=== PATIENT | female | born 1940 | race Caucasian/White ===

== ENCOUNTER 2018-10-10 15:42 | Outpatient (CLI) | payer MEDICARE, OTHER ==
[~2018-10-10] VITALS: Ht 167.6 cm; Wt 72.6 kg
[~2018-10-10 15:42] MED LIST: ACET-2267 PO; LEVO75TA6 PO; LOSA50TA63 PO; MULT-35 PO; OMEP20CA12 PO
== END 2018-10-10 15:50 | disposition home or self-care (01) ==
LOC: PREOP 15:42
PROVIDERS: ATTEND Surgery
DX: Z01.818 Encounter for other preprocedural examination (principal)

== ENCOUNTER → 2018-10-16 | Day surgery (SDC) | payer MEDICARE, OTHER ==
[~2018-10-16] VITALS: Ht 167.6 cm; Wt 72.6 kg
[~2018-10-16] MED LIST changes: +ASPI-586 PO; +CALC-823 PO; +CHOL400T PO; +HURRICAINE EXT TUBE (BENZOCAINE) ONE; +HURRICAINE EXT TUBE (BENZOCAINE) XX PRN; +MIDAZOLAM 2 MG/2 ML (VERSED) VIAL IVP ONE; +MIDAZOLAM 2 MG/2 ML (VERSED) VIAL ONE; +NS IV 500 ML 500 ML IV PRN; +fentaNYL INJECTION 100 MCG/2 ML AMP IVP ONE; +fentaNYL INJECTION 100 MCG/2 ML AMP ONE
--- OUTSIDE RECORDS SUMMARY | 2018-10-16 09:22 | XMS REPORT ---
Author Author Apollo Head Organization [employer] Address Unknown Phone Unavailable Care Team Providers Care Chlorinator Name Role Phone Apollo Head CP Unavailable Allergies No Known Allergies Problems Problem Type Condition ICD-9 Code Onset Dates Condition Status Problem Unspecified hypothyroidism 244.9 Active Assessment Essential hypertension, benign 401.1 Active Problem Essential hypertension, benign 401.1 Active Medications Medication Code System Code Instructions Start Date End Date Status Dosage Lisinopril [facility] [address]-35 10 MG Orally Once a day November 27, 2014 1 tablet Results No Known Results Summary Purpose [employer] Submission
--- OUTSIDE RECORDS SUMMARY | 2018-10-16 09:22 | XMS REPORT ---
Author Author Apollo Head Organization Victoriano Jennings MD Address [address] [place] [address] Care Team Providers Care Draw Frame Tender Name Role Phone Sonido Apollo Unavailable PROBLEMS Type Condition ICD9-CM Code [id number] Code Onset Dates Condition Status SNOMED Code Problem Type 2 diabetes mellitus without complications E11.9 Active 750148275 Problem Gastro-esophageal reflux disease without esophagitis K21.9 Active 228092784 Problem Hypothyroidism, unspecified E03.9 Active 21523519 Problem Essential (primary) hypertension I10 Active 70155735 ALLERGIES Substance Reaction Event Type Date Status Lisinopril cough Drug Allergy May, Active ENCOUNTERS Encounter Location Date Diagnosis Victoriano Jennings MD [address] [place] [phone] May, Encounter for general adult medical examination without abnormal findings Z00.00 ; Hypothyroidism, unspecified E03.9 ; Essential (primary) hypertension I10 ; Gastro-esophageal reflux disease without esophagitis K21.9 ; Type 2 diabetes mellitus without complications E11.9 ; Encounter for screening for malignant neoplasm of colon Z12.11 and Impacted cerumen, left ear H61.22 Victoriano Jennings MD [address] [place] [phone] Dec, Victoriano Jennings MD [address] [place] [phone] Dec, Victoriano Jennings MD [address] [place] [phone] Oct, Victoriano Jennings MD [address] [place] [phone] Sep, Hypothyroidism, unspecified E03.9 ; Essential (primary) hypertension I10 ; Gastro-esophageal reflux disease without esophagitis K21.9 and Type 2 diabetes mellitus without complications E11.9 Victoriano Jennings MD [address] [place] [phone] Mar, Essential (primary) hypertension I10 Victoriano Jennings MD [address] [place] [phone] 08 Feb, 2017 Essential (primary) hypertension I10 ; Hypothyroidism, unspecified E03.9 and Type 2 diabetes mellitus without complications E11.9 Victoriano Jennings MD [address] [place] [phone] 06 Nov, 2016 Essential (primary) hypertension I10 ; Gastro-esophageal reflux disease without esophagitis K21.9 and Encounter for screening mammogram for malignant neoplasm of breast Z12.31 Victoriano Jennings MD [address] [place] [phone] Apr, Dermatitis, unspecified L30.9 Victoriano Jennings MD [address] [place] [phone] 17 Feb, 2016 Victoriano Jennings MD [address] [place] [phone] Feb, Victoriano Jennings MD [address] [place] [phone] January, Encounter Imm do not use Z23 and Essential (primary) hypertension I10 Victoriano Jennings MD [address] [place] [phone] Dec, Hypothyroidism, unspecified E03.9 ; Essential (primary) hypertension I10 ; Gastro-esophageal reflux disease without esophagitis K21.9 and Type 2 diabetes mellitus without complications E11.9 Victoriano Jennings MD [address] [place] [phone] Oct, Essential (primary) hypertension I10 and Gastro-esophageal reflux disease without esophagitis K21.9 Victoriano Jennings MD [address] [place] [phone] Aug, Unilateral primary osteoarthritis, right knee M17.11 ; Hyperglycemia, unspecified R73.9 ; Hypothyroidism, unspecified E03.9 and Essential (primary) hypertension I10 Victoriano Jennings MD [address] [place] [phone] Jun, Encounter Imm do not use Z23 and Unspecified open wound of left forearm, initial encounter S51.802A Victoriano Jennings MD [address] [place] [phone] 16 Feb, 2015 Diabetes mellitus without mention of complication, type II or unspecified type, not stated as uncontrolled 250.00 and Essential hypertension, benign 401.1 Victoriano Jennings MD [address] [place] [phone] Dec, Diabetes mellitus without mention of complication, type II or unspecified type, not stated as uncontrolled 250.00 ; 24 completed weeks of gestation 765.22 and Essential hypertension, benign 401.1 Victoriano Jennings MD [address] [place] [phone] Dec, Victoriano Jennings MD [address] [place] [phone] Dec, Essential hypertension, benign 401.1 Victoriano Jennings MD [address] [place] [phone] Dec, Essential hypertension, benign 401.1 Victoriano Jennings MD [address] [place] [phone] Dec, Victoriano Jennings MD [address] [place] [phone] Dec, Esophageal reflux 530.81 Victoriano Jennings MD [address] [place] [phone] Nov, Victoriano Jennings MD [address] [place] [phone] Nov, Essential hypertension, benign 401.1 Victoriano Jennings MD [address] [place] [phone] Nov, Essential hypertension, benign 401.1 ; Unspecified hypothyroidism 244.9 and Diabetes mellitus without mention of complication, type II or unspecified type, not stated as uncontrolled 250.00 Victoriano Jennings MD [address] [place] [phone] Nov, Essential hypertension, benign 401.1 and Unspecified hypothyroidism 244.9 Victoriano Jennings MD [address] [place] [phone] Oct, Essential hypertension, benign 401.1 Victoriano Jennings MD [address] [place] [phone] Oct, Essential hypertension, benign 401.1 Victoriano Jennings MD [address] [place] [phone] Oct, Essential hypertension, benign 401.1 Victoriano Jennings MD [address] [place] [phone] Apr, Victoriano Jennings MD [address] [place] [phone] January, Victoriano Jennings MD [address] [place] [phone] Dec, screening mammogram V76.12 Victoriano Jennings MD [address] [place] [address] Jun, viral gastroenteritis 008.8 and Unspecified hypothyroidism 244.9 IMMUNIZATIONS No Known Immunizations SOCIAL HISTORY Never Assessed REASON FOR VISIT annual visit PLAN OF CARE Activity Details Follow Up 1 Year Reason: Pending Test Occult Blood, Stool, Guaiac Pending Test CBC NO 5 PART DIFFERENTIAL Pending Test LIPID GROUP Pending Test COMPREHENSIVE METABOLIC Pending Test THYROID STIMULATING HORMONE Pending Test HEMOGLOBIN A1C (GLYCOSYLATED) VITAL SIGNS Height 64.50 in 2018-05-30 Weight 165 lbs 2018-05-30 BMI 27.88 kg/m2 2018-05-30 Heart Rate 97 /min 2018-05-30 Oximetry 98 % 2018-05-30 Respiratory Rate 20 /min 2018-05-30 Blood pressure systolic 141 mm Hg 2018-05-30 Blood pressure diastolic 97 mm Hg 2018-05-30 MEDICATIONS Medication Instructions Dosage Frequency Start Date End Date Duration Status Levothyroxine Sodium 75 MCG TAKE 1 TABLET EVERY DAY Active Pseudoephedrine HCl ER 120 MG Orally every 12 hrs 1 tablet as needed 12h 24 Dec, 2017 Not-Taking Losartan Potassium 50 MG TAKE 1 TABLET EVERY DAY Active Omeprazole 20 MG TAKE 1 CAPSULE EVERY DAY Active RESULTS No Results PROCEDURES Procedure Date Ordered Result Body Site fecal occult blood 3 specemins May 30, 2018 PREHTN/HTN BP with F/U May 30, 2018 PAIN ASSESS NEG NO F/U PLAN RQR May 30, 2018 MDCR Wlns do not use May 30, 2018 DOC PATIENT CURRNT NON-TOBACCO USER May 30, 2018 INSTRUCTIONS MEDICATIONS ADMINISTERED No Known Medications MEDICAL (GENERAL) HISTORY Type Description Date Surgical History Lab work Surgical History Knee replacement 12-03-15 Hospitalization History Knee Replacement 12-03-15
--- OUTSIDE RECORDS SUMMARY | 2018-10-16 09:22 | XMS REPORT ---
Author Author Apollo Head Organization [employer] Address Unknown Phone Unavailable Care Team Providers Care Retail Wireless Sales Representative Name Role Phone Apollo Head CP Unavailable Allergies No Known Allergies Problems Problem Type Condition ICD-9 Code Onset Dates Condition Status Problem Unspecified hypothyroidism 244.9 Active Problem Essential hypertension, benign 401.1 Active Medications Medication Code System Code Instructions Start Date End Date Status Dosage Omeprazole [facility] [address]-30 20 MG Orally Once a day December 24, 2014 1 capsule Results No Known Results Summary Purpose [employer] Submission
--- OUTSIDE RECORDS SUMMARY | 2018-10-16 09:22 | XMS REPORT ---
Author Author Victoriano Jennings Organization [employer] Address Unknown Phone Unavailable Care Team Providers Care Coating Machine Operator Helper Name Role Phone Victoriano Jennings CP Unavailable Allergies, Adverse Reactions, Alerts Substance Reaction Event Type N.K.D.A. Info Not Available Non Drug Allergy Problems Problem Type Condition ICD-9 Code Onset Dates Condition Status Problem Unspecified hypothyroidism 244.9 Active Assessment Diabetes mellitus without mention of complication, type II or unspecified type, not stated as uncontrolled 250.00 Active Problem Essential hypertension, benign 401.1 Active Assessment Essential hypertension, benign 401.1 Active Medications Medication Code System Code Instructions Start Date End Date Status Dosage Levothyroxine Sodium [facility] [address]-68 75 MCG TAKE 1 TABLET EVERY DAY Omeprazole [facility] [address]-93 20 MG Orally Once a day December 24, 2014 1 capsule Lisinopril [facility] [address]-66 10 MG Orally Once a day November 27, 2014 1 tablet Procedures Procedure Coding System Code Date Office Visit, Est Pt., Level 1 CPT-4 65111 March 04, 2015 GLUCOSE BLOOD TEST CPT-4 33900 March 04, 2015 Vital Signs Date/Time: March 04, 2015 Blood Pressure Systolic 142 mm Hg Weight 00 lbs Height 64.5 in Blood Pressure Diastolic 84 mm Hg Results No Known Results Summary Purpose [employer] Submission
--- OUTSIDE RECORDS SUMMARY | 2018-10-16 09:22 | XMS REPORT ---
Author Author Victoriano Jennings Organization Victoriano Jennings MD Address [address] [place] [phone] Care Team Providers Care Proof Load Mechanic Name Role Phone Victoriano Jennings Unavailable PROBLEMS Type Condition ICD9-CM Code [id number] Code Onset Dates Condition Status SNOMED Code Problem Gastro-esophageal reflux disease without esophagitis K21.9 Active 734327661 Problem Hypothyroidism, unspecified E03.9 Active 14262326 Assessment Encounter for screening mammogram for malignant neoplasm of breast Z12.31 Nov, Active 233783864 Problem Essential (primary) hypertension I10 Active 70451815 Assessment Essential (primary) hypertension I10 Nov, Active 79787579 ALLERGIES Substance Reaction Event Type Date Status Lisinopril cough Drug Allergy Nov, Active SOCIAL HISTORY No smoking Hx information available PLAN OF CARE Activity Details Pending Test MAMMOGRAM, SCREENING 3 Months,Reason: VITAL SIGNS Height 64.5 in 2016-11-22 Weight 168 lbs 2016-11-22 BMI 28.39 kg/m2 2016-11-22 Heart Rate 97 /min 2016-11-22 Oximetry 100 % 2016-11-22 Respiratory Rate 20 /min 2016-11-22 Blood pressure systolic 148 mm Hg 2016-11-22 Blood pressure diastolic 92 mm Hg 2016-11-22 MEDICATIONS Medication Instructions Dosage Frequency Start Date End Date Duration Status Levothyroxine Sodium 75 MCG TAKE 1 TABLET EVERY DAY 90 Active Losartan Potassium 50 MG Orally Once a day 1 tablet 24h Nov, 90 days Active Omeprazole 20 MG Orally Once a day 1 capsule 24h Dec, 90 days Active RESULTS No Results PROCEDURES Procedure Date Ordered Related Diagnosis Body Site Office Visit, Est Pt., Level 3 November 22, 2016 IMMUNIZATIONS No Known Immunizations
--- OUTSIDE RECORDS SUMMARY | 2018-10-16 09:22 | XMS REPORT ---
Author Author Victoriano Jennings Organization [employer] Address Unknown Phone Unavailable Care Team Providers Care Horticultural Farmer Name Role Phone Victoriano Jennings CP Unavailable Allergies No Known Allergies Problems Problem Type Condition ICD-9 Code Onset Dates Condition Status Problem Unspecified hypothyroidism 244.9 Active Assessment Essential hypertension, benign 401.1 Active Problem Essential hypertension, benign 401.1 Active Medications Medication Code System Code Instructions Start Date End Date Status Dosage Aspir-81 [facility] [address]-38 81 MG Orally Once a day 1 tablet Prilosec OTC [facility] [address] 20 MG Orally Once a day 1 tablet Levothyroxine Sodium [facility] [address]-46 75 MCG TAKE 1 TABLET EVERY DAY Vital Signs Date/Time: Nov 14, 2014 Blood Pressure Diastolic 88 mm Hg Blood Pressure Systolic 158 mm Hg Height 64.5 in Results No Known Results Summary Purpose [employer] Submission
--- OUTSIDE RECORDS SUMMARY | 2018-10-16 09:23 | XMS REPORT ---
Author Author Victoriano Jennings Organization [employer] Address Unknown Phone Unavailable Care Team Providers Care Dress Draper Name Role Phone Victoriano Jennings CP Unavailable Allergies, Adverse Reactions, Alerts Substance Reaction Event Type N.K.D.A. Info Not Available Non Drug Allergy Problems Problem Type Condition Code Onset Dates Condition Status Problem Unspecified hypothyroidism 244.9 Active Assessment Essential hypertension, benign 401.1 Active Problem Essential hypertension, benign 401.1 Active Assessment Unspecified hypothyroidism 244.9 Active Assessment Diabetes mellitus without mention of complication, type II or unspecified type, not stated as uncontrolled 250.00 Active Medications Medication Code System Code Instructions Start Date End Date Status Dosage Lisinopril [facility] [address]-09 10 MG Orally Once a day November 27, 2014 1 tablet Levothyroxine Sodium [facility] [address]-49 75 MCG TAKE 1 TABLET EVERY DAY Prilosec OTC [facility] [address] 20 MG Orally Once a day 1 tablet Procedures Procedure Coding System Code Date TOBACCO NON-USER CPT-4 1036F November 27, 2014 PREHTN/HTN BP DOC INDCD F/U DOC CPT-4 G8950 November 27, 2014 Office Visit, Est Pt., Level 3 CPT-4 47875 November 27, 2014 GLUCOSE BLOOD TEST CPT-4 50460 November 27, 2014 Vital Signs Date/Time: November 27, 2014 BMI 29.74 Index Weight 176 lbs Height 64.5 in Oximetry 98 % Cardiac Monitoring Heart Rate 90 /min Blood Pressure Diastolic 90 mm Hg Blood Pressure Systolic 168 mm Hg Results No Known Results Summary Purpose [employer] Submission
--- OUTSIDE RECORDS SUMMARY | 2018-10-16 09:23 | XMS REPORT ---
Author Author Victoriano Jennings Organization [employer] Address Unknown Phone Unavailable Care Team Providers Care Back Roller Name Role Phone Victoriano Jennings CP Unavailable Allergies No Known Allergies Problems Problem Type Condition Code Onset Dates Condition Status Problem Unspecified hypothyroidism 244.9 Active Assessment Esophageal reflux 530.81 Active Problem Essential hypertension, benign 401.1 Active Medications Medication Code System Code Instructions Start Date End Date Status Dosage Omeprazole [facility] [address]-06 20 MG Orally Once a day December 24, 2014 1 capsule Results No Known Results Summary Purpose [employer] Submission
--- OUTSIDE RECORDS SUMMARY | 2018-10-16 09:23 | XMS REPORT ---
Author Author Victoriano Jennings Organization [employer] Address Unknown Phone Unavailable Care Team Providers Care Security Intern Name Role Phone Victoriano Jennings CP Unavailable Allergies, Adverse Reactions, Alerts Substance Reaction Event Type N.K.D.A. Info Not Available Non Drug Allergy Problems Problem Type Condition Code Onset Dates Condition Status Problem Unspecified hypothyroidism 244.9 Active Assessment Encounter for immunization Z23 Active Problem Essential hypertension, benign 401.1 Active Assessment Unspecified open wound of left forearm, initial encounter S51.802A Active Medications Medication Code System Code Instructions Start Date End Date Status Dosage Omeprazole [facility] [address]-08 20 MG Orally Once a day December 24, 2014 1 capsule Lisinopril [facility] [address]-48 10 MG Orally Once a day November 27, 2014 1 tablet Levothyroxine Sodium [facility] [address]-55 75 MCG TAKE 1 TABLET EVERY DAY Procedures Procedure Coding System Code Date TD VACCINE NO PRSRV >/=7 IM CPT-4 35728 Jul 10, 2015 FLU VACC medicare CPT-4 Q2038 Jul 10, 2015 ADMN FLU VAC NO FEE SCHED SAME DAY CPT-4 G0008 Jul 10, 2015 Results No Known Results Immunizations Vaccine Administration Date Influenza Jul 10, 2015 Td Jul 10, 2015 Summary Purpose [employer] Submission
--- OUTSIDE RECORDS SUMMARY | 2018-10-16 09:23 | XMS REPORT ---
Author Apollo Decker Organization [employer] Address Unknown Phone Unavailable Care Team Providers Care Carpenter Ship Name Role Phone Apollo eHad CP Unavailable Allergies, Adverse Reactions, Alerts Substance Reaction Event Type Lisinopril cough Drug Allergy Problems Problem Type Condition Code Onset Dates Condition Status Problem Hypothyroidism, unspecified E03.9 Active Problem Essential (primary) hypertension I10 Active Problem Gastro-esophageal reflux disease without esophagitis K21.9 Active Assessment Dermatitis, unspecified L30.9 Active Medications Medication Code System Code Instructions Start Date End Date Status Dosage Losartan Potassium [facility] [address]-86 25 MG Orally Once a day Nov 13, 2015 1 tablet Omeprazole [facility] [address]-59 20 MG Orally Once a day December 24, 2014 1 capsule PredniSONE [facility] [address]-45 10 MG Orally Once a day May 03, 2016 May 11, 2016 8 tablets day 1, 7 tablets day 2, 6 tablets day 3, and so on Levothyroxine Sodium [facility] 95090276864 75 MCG TAKE 1 TABLET EVERY DAY Procedures Procedure Coding System Code Date Office Visit, Est Pt., Level 3 CPT-4 62642 May 03, 2016 Vital Signs Date/Time: May 03, 2016 BMI 28.05 Index Weight 166 lbs Height 64.500 in Oximetry 97 % Cardiac Monitoring Heart Rate 86 /min Blood Pressure Diastolic 86 mm Hg Blood Pressure Systolic 158 mm Hg Results No Known Results Summary Purpose [employer] Submission
--- OUTSIDE RECORDS SUMMARY | 2018-10-16 09:23 | XMS REPORT ---
Author Author Victoriano Jennings MD Address [address] [place] [phone] Care Team Providers Care Car Rental Sales Assistant Name Role Phone Victoriano Jennings Unavailable PROBLEMS Type Condition ICD9-CM Code [id number] Code Onset Dates Condition Status SNOMED Code Problem Type 2 diabetes mellitus without complications E11.9 Active 290096075 Problem Gastro-esophageal reflux disease without esophagitis K21.9 Active 253931745 Problem Hypothyroidism, unspecified E03.9 Active 34913115 Problem Essential (primary) hypertension I10 Active 84466964 ALLERGIES No Information ENCOUNTERS Encounter Location Date Diagnosis Victoriano Jennings MD [address] [place] [phone] Oct, Victoriano Jennings MD [address] [place] [phone] Sep, Hypothyroidism, unspecified E03.9 ; Essential (primary) hypertension I10 ; Gastro-esophageal reflux disease without esophagitis K21.9 and Type 2 diabetes mellitus without complications E11.9 Victoriano Jennings MD [address] [place] [phone] Mar, Essential (primary) hypertension I10 Victoriano Jennings MD [address] [place] [phone] Feb, Essential (primary) hypertension I10 ; Hypothyroidism, unspecified E03.9 and Type 2 diabetes mellitus without complications E11.9 Victoriano Jennings MD [address] [place] [phone] Nov, Essential (primary) hypertension I10 ; Gastro-esophageal reflux disease without esophagitis K21.9 and Encounter for screening mammogram for malignant neoplasm of breast Z12.31 Victoriano Jennings MD [address] [place] [phone] Apr, Dermatitis, unspecified L30.9 Victoriano Jennings MD [address] [place] [phone] 17 Feb, 2016 Victoriano Jennings MD [address] [place] [phone] Feb, Victoriano Jennings MD [address] [place] [phone] January, Encounter for immunization Z23 and Essential (primary) hypertension I10 Victoriano Jennings MD [address] [place] [phone] Dec, Hypothyroidism, unspecified E03.9 ; Essential (primary) hypertension I10 ; Gastro-esophageal reflux disease without esophagitis K21.9 and Type 2 diabetes mellitus without complications E11.9 Victoriano Jennings MD [address] [place] [phone] Oct, Essential (primary) hypertension I10 and Gastro-esophageal reflux disease without esophagitis K21.9 Victoriano Jennings MD [address] [place] [phone] Aug, Unilateral primary osteoarthritis, right knee M17.11 ; Hyperglycemia, unspecified R73.9 ; Hypothyroidism, unspecified E03.9 and Essential (primary) hypertension I10 Victoriano Jennings MD [address] [place] [phone] Jun, Encounter for immunization Z23 and Unspecified open wound of left forearm, initial encounter S51.802A Victoriano Jennings MD [address] [place] [phone] Feb, Diabetes mellitus without mention of complication, type II or unspecified type, not stated as uncontrolled 250.00 and Essential hypertension, benign 401.1 Victoriano Jennings MD [address] [place] [phone] Dec, Diabetes mellitus without mention of complication, type II or unspecified type, not stated as uncontrolled 250.00 ; 24 completed weeks of gestation 765.22 and Essential hypertension, benign 401.1 Victoriano Jennings MD [address] [place] [phone] Dec, Victoriano Jennings MD [address] [place] [phone] Dec, Essential hypertension, benign 401.1 Victoriano Jennings MD [address] [place] [phone] Dec, Essential hypertension, benign 401.1 Victoriano Jennings MD [address] [place] [phone] Dec, Victoriano Jennings MD [address] [place] [address] Dec, Esophageal reflux 530.81 Victoriano Jennings MD [address] [place] [phone] Nov, Victoriano Jennings MD [address] [place] [phone] Nov, Essential hypertension, benign 401.1 Victoriano Jennings MD [address] [place] [phone] Nov, Essential hypertension, benign 401.1 ; Unspecified hypothyroidism 244.9 and Diabetes mellitus without mention of complication, type II or unspecified type, not stated as uncontrolled 250.00 Victoriano Jennings MD [address] [place] [phone] Nov, Essential hypertension, benign 401.1 and Unspecified hypothyroidism 244.9 Victoriano Jennings MD [address] [place] [phone] Oct, Essential hypertension, benign 401.1 Victoriano Jennings MD [address] [place] [phone] Oct, Essential hypertension, benign 401.1 Victoriano Jennings MD [address] [place] [phone] Oct, Essential hypertension, benign 401.1 Victoriano Jennings MD [address] [place] [phone] Apr, Victoriano Jennings MD [address] [place] [phone] January, Victoriano Jennings MD [address] [place] [phone] Dec, screening mammogram V76.12 Victoriano Jennings MD [address] [place] [phone] Jun, viral gastroenteritis 008.8 and Unspecified hypothyroidism 244.9 IMMUNIZATIONS No Known Immunizations SOCIAL HISTORY Never Assessed REASON FOR VISIT refil on her losarta potassiun 50mg sent to [facility] VITAL SIGNS MEDICATIONS Medication Instructions Dosage Frequency Start Date End Date Duration Status Losartan Potassium 50 MG Orally Once a day 1 tablet 24h Nov, 90 days Active RESULTS No Results PROCEDURES No Known procedures INSTRUCTIONS MEDICATIONS ADMINISTERED No Known Medications MEDICAL (GENERAL) HISTORY Type Description Date Surgical History Lab work Surgical History Knee replacement 12-03-15 Hospitalization History Knee Replacement 12-03-15
--- OUTSIDE RECORDS SUMMARY | 2018-10-16 09:23 | XMS REPORT ---
Author Author Victoriano Jennings Organization [employer] Address Unknown Phone Unavailable Care Team Providers Care Feed Mill Lab Technician Name Role Phone Victoriano Jennings CP Unavailable Allergies, Adverse Reactions, Alerts Substance Reaction Event Type N.K.D.A. Info Not Available Non Drug Allergy Problems Problem Type Condition ICD-9 Code Onset Dates Condition Status Problem Unspecified hypothyroidism 244.9 Active Assessment Essential hypertension, benign 401.1 Active Problem Essential hypertension, benign 401.1 Active Medications Medication Code System Code Instructions Start Date End Date Status Dosage Prilosec OTC [facility] [address] 20 MG Orally Once a day 1 tablet Levothyroxine Sodium [facility] [address]-09 75 MCG TAKE 1 TABLET EVERY DAY Aspir-81 [facility] [address]-89 81 MG Orally Once a day 1 tablet Procedures Procedure Coding System Code Date NURSING ASSESSMENT/EVALUATION CPT-4 T1001 Nov 13, 2014 Vital Signs Date/Time: Nov 13, 2014 Blood Pressure Diastolic 86 mm Hg Blood Pressure Systolic 158 mm Hg Height 64.5 in Results No Known Results Summary Purpose [employer] Submission
--- OUTSIDE RECORDS SUMMARY | 2018-10-16 09:23 | XMS REPORT ---
Author Author Apollo Head Organization [employer] Address Unknown Phone Unavailable Care Team Providers Care Hemming And Tacking Machine Operator Name Role Phone Apollo Head CP Unavailable Allergies No Known Allergies Problems Problem Type Condition ICD-9 Code Onset Dates Condition Status Problem Unspecified hypothyroidism 244.9 Active Assessment Essential hypertension, benign 401.1 Active Problem Essential hypertension, benign 401.1 Active Medications Medication Code System Code Instructions Start Date End Date Status Dosage Lisinopril [facility] [address]-51 10 MG Orally Once a day November 27, 2014 1 tablet Results No Known Results Summary Purpose [employer] Submission
--- OUTSIDE RECORDS SUMMARY | 2018-10-16 09:23 | XMS REPORT ---
Author Author Apollo Head Organization [employer] Address Unknown Phone Unavailable Care Team Providers Care Drop Forge Hand Name Role Phone Apollo Head CP Unavailable Allergies No Known Allergies Problems Problem Type Condition Code Onset Dates Condition Status Problem Unspecified hypothyroidism 244.9 Active Problem Essential hypertension, benign 401.1 Active Medications No Known Medications Results No Known Results Summary Purpose [employer] Submission
--- OUTSIDE RECORDS SUMMARY | 2018-10-16 09:23 | XMS REPORT ---
Author Author Victoriano Jennings Organization [employer] Address Unknown Phone Unavailable Care Team Providers Care Agricultural Equipment Salesperson Name Role Phone Victoriano Jennings CP Unavailable Allergies, Adverse Reactions, Alerts Substance Reaction Event Type N.K.D.A. Info Not Available Non Drug Allergy Problems Problem Type Condition ICD-9 Code Onset Dates Condition Status Problem Unspecified hypothyroidism 244.9 Active Assessment Essential hypertension, benign 401.1 Active Problem Essential hypertension, benign 401.1 Active Medications Medication Code System Code Instructions Start Date End Date Status Dosage Aspir-81 [facility] [address]-68 81 MG Orally Once a day 1 tablet Levothyroxine Sodium [facility] [address]-88 75 MCG TAKE 1 TABLET EVERY DAY Prilosec OTC [facility] [address] 20 MG Orally Once a day 1 tablet Vital Signs Date/Time: Nov 15, 2014 Blood Pressure Diastolic 100 mm Hg Blood Pressure Systolic 160 mm Hg Height 64.5 in Results No Known Results Summary Purpose [employer] Submission
--- OUTSIDE RECORDS SUMMARY | 2018-10-16 09:23 | XMS REPORT ---
Author Author Victoriano Jennings Organization [employer] Address Unknown Phone Unavailable Care Team Providers Care Reworker Name Role Phone Victoriano Jennings CP Unavailable Allergies, Adverse Reactions, Alerts Substance Reaction Event Type N.K.D.A. Info Not Available Non Drug Allergy Problems Problem Type Condition ICD-9 Code Onset Dates Condition Status Problem Unspecified hypothyroidism 244.9 Active Assessment Essential hypertension, benign 401.1 Active Problem Essential hypertension, benign 401.1 Active Assessment Unspecified hypothyroidism 244.9 Active Medications Medication Code System Code Instructions Start Date End Date Status Dosage Prilosec OTC [facility] [address] 20 MG Orally Once a day 1 tablet Levothyroxine Sodium [facility] [address]-43 75 MCG TAKE 1 TABLET EVERY DAY Procedures Procedure Coding System Code Date TOBACCO NON-USER CPT-4 1036F November 18, 2014 PREHTN/HTN BP DOC INDCD F/U DOC CPT-4 G8950 November 18, 2014 Office Visit, Est Pt., Level 3 CPT-4 06322 November 18, 2014 Vital Signs Date/Time: November 18, 2014 BMI 30.42 Index Weight 180 lbs Height 64.5 in Oximetry 95 % Cardiac Monitoring Heart Rate 110 /min Blood Pressure Diastolic 92 mm Hg Blood Pressure Systolic 152 mm Hg Results No Known Results Summary Purpose [employer] Submission
--- OUTSIDE RECORDS SUMMARY | 2018-10-16 09:24 | XMS REPORT ---
Author Author Apollo Head Organization [employer] Address Unknown Phone Unavailable Care Team Providers Care Home Health Aide Caregiver Name Role Phone Apollo Head CP Unavailable Allergies No Known Allergies Problems Problem Type Condition ICD-9 Code Onset Dates Condition Status Problem Unspecified hypothyroidism 244.9 Active Problem Essential hypertension, benign 401.1 Active Medications Medication Code System Code Instructions Start Date End Date Status Dosage Prilosec OTC [facility] [address] 20 MG Orally Once a day 1 tablet Results No Known Results Summary Purpose [employer] Submission
--- OUTSIDE RECORDS SUMMARY | 2018-10-16 09:24 | XMS REPORT ---
Author Author Apollo Head Organization [employer] Address Unknown Phone Unavailable Care Team Providers Care Critical Power Technician Name Role Phone Apollo Head CP Unavailable Allergies No Known Allergies Problems Problem Type Condition ICD-9 Code Onset Dates Condition Status Problem Unspecified hypothyroidism 244.9 Active Assessment Essential hypertension, benign 401.1 Active Problem Essential hypertension, benign 401.1 Active Medications Medication Code System Code Instructions Start Date End Date Status Dosage Levothyroxine Sodium [facility] [address]-79 75 MCG TAKE 1 TABLET EVERY DAY Lisinopril [facility] [address]-39 10 MG Orally Once a day November 27, 2014 1 tablet Results No Known Results Summary Purpose [employer] Submission
--- OUTSIDE RECORDS SUMMARY | 2018-10-16 09:24 | XMS REPORT ---
Author Author Victoriano Jennings Organization [employer] Address Unknown Phone Unavailable Care Team Providers Care New Business Clerk Name Role Phone Victoriano Jennings CP Unavailable Allergies No Known Allergies Problems Problem Type Condition Code Onset Dates Condition Status Problem Unspecified hypothyroidism 244.9 Active Assessment Diabetes mellitus without mention of complication, type II or unspecified type, not stated as uncontrolled 250.00 Active Problem Essential hypertension, benign 401.1 Active Assessment 24 completed weeks of gestation 765.22 Active Assessment Essential hypertension, benign 401.1 Active Medications Medication Code System Code Instructions Start Date End Date Status Dosage Lisinopril [facility] [address]-17 10 MG Orally Once a day November 27, 2014 1 tablet Omeprazole [facility] [address]-87 20 MG Orally Once a day December 24, 2014 1 capsule Levothyroxine Sodium [facility] [address]-66 75 MCG TAKE 1 TABLET EVERY DAY Procedures Procedure Coding System Code Date Office Visit, Est Pt., Level 1 CPT-4 51414 January 08, 2015 GLUCOSE BLOOD TEST CPT-4 08400 January 08, 2015 Vital Signs Date/Time: January 08, 2015 Blood Pressure Systolic 156 mm Hg Weight 0000 lbs Height 64.5 in Blood Pressure Diastolic 86 mm Hg Results No Known Results Summary Purpose [employer] Submission
--- OUTSIDE RECORDS SUMMARY | 2018-10-16 09:24 | XMS REPORT ---
Author Author Apollo Head Organization Victoriano Jennings MD Address [address] [place] [address] Care Team Providers Care Registered Nurse Midwife Name Role Phone SonidoSawi Unavailable PROBLEMS Type Condition ICD9-CM Code [id number] Code Onset Dates Condition Status SNOMED Code Problem Type 2 diabetes mellitus without complications E11.9 Active 726764276 Problem Gastro-esophageal reflux disease without esophagitis K21.9 Active 350845316 Problem Hypothyroidism, unspecified E03.9 Active 18217229 Problem Essential (primary) hypertension I10 Active 50162019 ALLERGIES Substance Reaction Event Type Date Status Lisinopril cough Drug Allergy Sep, Active ENCOUNTERS Encounter Location Date Diagnosis Victoriano Jennings MD [address] [place] [phone] Oct, Victoriano Jennings MD [address] [place] [phone] Sep, Hypothyroidism, unspecified E03.9 ; Essential (primary) hypertension I10 ; Gastro-esophageal reflux disease without esophagitis K21.9 and Type 2 diabetes mellitus without complications E11.9 Victoriano Jennings MD [address] [place] [phone] Mar, Essential (primary) hypertension I10 Victoriano Jennings MD [address] [place] [address] Feb, Essential (primary) hypertension I10 ; Hypothyroidism, unspecified E03.9 and Type 2 diabetes mellitus without complications E11.9 Victoriano Jennings MD [address] [place] [phone] Nov, Essential (primary) hypertension I10 ; Gastro-esophageal reflux disease without esophagitis K21.9 and Encounter for screening mammogram for malignant neoplasm of breast Z12.31 Victoriano Jennings MD [address] [place] [phone] Apr, Dermatitis, unspecified L30.9 Victoriano Jennings MD [address] [place] [address] Feb, Victoriano Jennings MD [address] [place] [address] Feb, Victoriano Jennings MD [address] [place] [phone] January, Encounter for immunization Z23 and Essential (primary) hypertension I10 Victoriano Jennings MD [address] [place] [address] Dec, Hypothyroidism, unspecified E03.9 ; Essential (primary) hypertension I10 ; Gastro-esophageal reflux disease without esophagitis K21.9 and Type 2 diabetes mellitus without complications E11.9 Victoriano Jennings MD [address] [place] [address] Oct, Essential (primary) hypertension I10 and Gastro-esophageal reflux disease without esophagitis K21.9 Victoriano Jennings MD [address] [place] [address] Aug, Unilateral primary osteoarthritis, right knee M17.11 ; Hyperglycemia, unspecified R73.9 ; Hypothyroidism, unspecified E03.9 and Essential (primary) hypertension I10 Victoriano Jennings MD [address] [place] [phone] Jun, Encounter for immunization Z23 and Unspecified open wound of left forearm, initial encounter S51.802A Victoriano Jennings MD [address] [place] [address] Feb, Diabetes mellitus without mention of complication, type II or unspecified type, not stated as uncontrolled 250.00 and Essential hypertension, benign 401.1 Victoriano Jennings MD [address] [place] [address] Dec, Diabetes mellitus without mention of complication, type II or unspecified type, not stated as uncontrolled 250.00 ; 24 completed weeks of gestation 765.22 and Essential hypertension, benign 401.1 Victoriano Jennings MD [address] [place] [address] Dec, Victoriano Jennings MD [address] [place] [address] Dec, Essential hypertension, benign 401.1 Victoriano Jennings MD [address] [place] [phone] Dec, Essential hypertension, benign 401.1 Victoriano Jennings MD [address] [place] [address] Dec, Victoriano Jennings MD [address] [place] [address] Dec, Esophageal reflux 530.81 Victoriano Jennings MD [address] [place] [address] Nov, Victoriano Jennings MD [address] [place] [address] Nov, Essential hypertension, benign 401.1 Victoriano Jennings MD [address] [place] [address] Nov, Essential hypertension, benign 401.1 ; Unspecified hypothyroidism 244.9 and Diabetes mellitus without mention of complication, type II or unspecified type, not stated as uncontrolled 250.00 Victoriano Jennings MD [address] [place] [address] Nov, Essential hypertension, benign 401.1 and Unspecified hypothyroidism 244.9 Victoriano Jennings MD [address] [place] [address] Oct, Essential hypertension, benign 401.1 Victoriano Jennings MD [address] [place] [address] Oct, Essential hypertension, benign 401.1 Victoriano Jennings MD [address] [place] [address] Oct, Essential hypertension, benign 401.1 Victoriano Jennings MD [address] [place] [address] Apr, Victoriano Jennings MD [address] [place] [phone] January, Victoriano Jennings MD [address] [place] [address] Dec, screening mammogram V76.12 Victoriano Jennings MD [address] [place] [address] Jun, viral gastroenteritis 008.8 and Unspecified hypothyroidism 244.9 IMMUNIZATIONS No Known Immunizations SOCIAL HISTORY Never Assessed REASON FOR VISIT check up , form filled out for her exercise class, she is fasting and would like blood sugar PLAN OF CARE Activity Details Follow Up prn, 2 Weeks Reason:BP VITAL SIGNS Height 64.5 in 2017-10-07 Weight 170 lbs 2017-10-07 BMI 28.73 kg/m2 2017-10-07 Heart Rate 82 /min 2017-10-07 Oximetry 97 % 2017-10-07 Respiratory Rate 20 /min 2017-10-07 Blood pressure systolic 150 mm Hg 2017-10-07 Blood pressure diastolic 92 mm Hg 2017-10-07 MEDICATIONS Medication Instructions Dosage Frequency Start Date End Date Duration Status Losartan Potassium 50 MG Orally Once a day 1 tablet 24h Nov, 90 days Active Levothyroxine Sodium 75 MCG TAKE 1 TABLET EVERY DAY 90 Active Omeprazole 20 MG TAKE 1 CAPSULE EVERY DAY 90 Active RESULTS No Results PROCEDURES Procedure Date Ordered Result Body Site DOC PATIENT CURRNT NON-TOBACCO USER Oct 07, 2017 PAIN ASSESS NEG NO F/U PLAN RQR Oct 07, 2017 PREHTN/HTN BP with F/U Oct 07, 2017 INSTRUCTIONS MEDICATIONS ADMINISTERED No Known Medications MEDICAL (GENERAL) HISTORY Type Description Date Surgical History Lab work Surgical History Knee replacement 12-03-15 Hospitalization History Knee Replacement 12-03-15
--- OUTSIDE RECORDS SUMMARY | 2018-10-16 09:24 | XMS REPORT ---
Author Author Victoriano Jennings MD Address [address] [place] [phone] Care Team Providers Care Hydraulic Press Tender Name Role Phone Victoriano Jennings Unavailable PROBLEMS Type Condition ICD9-CM Code [id number] Code Onset Dates Condition Status SNOMED Code Problem Type 2 diabetes mellitus without complications E11.9 Active 641769499 Problem Gastro-esophageal reflux disease without esophagitis K21.9 Active 991855881 Problem Hypothyroidism, unspecified E03.9 Active 55765778 Problem Essential (primary) hypertension I10 Active 51195413 ALLERGIES Substance Reaction Event Type Date Status Lisinopril cough Drug Allergy Feb, Active ENCOUNTERS Encounter Location Date Diagnosis Victoriano Jennings MD [address] [place] [phone] Oct, Victoriano Jennings MD [address] [place] [phone] Sep, Hypothyroidism, unspecified E03.9 ; Essential (primary) hypertension I10 ; Gastro-esophageal reflux disease without esophagitis K21.9 and Type 2 diabetes mellitus without complications E11.9 Victoriano Jennings MD [address] [place] [phone] Mar, Essential (primary) hypertension I10 Victoriano Jennings MD [address] [place] [phone] Feb, Essential (primary) hypertension I10 ; Hypothyroidism, unspecified E03.9 and Type 2 diabetes mellitus without complications E11.9 Victoriano Jennings MD [address] [place] [phone] Nov, Essential (primary) hypertension I10 ; Gastro-esophageal reflux disease without esophagitis K21.9 and Encounter for screening mammogram for malignant neoplasm of breast Z12.31 Victoriano Jennings MD [address] [place] [phone] Apr, Dermatitis, unspecified L30.9 Victoriano Jennings MD [address] [place] [phone] Feb, Victoriano Jennings MD [address] [place] [phone] Feb, Victoriano Jennings MD [address] [place] [phone] January, Encounter for immunization Z23 and Essential (primary) hypertension I10 Victoriano Jennings MD [address] [place] [phone] Dec, Hypothyroidism, unspecified E03.9 ; Essential (primary) hypertension I10 ; Gastro-esophageal reflux disease without esophagitis K21.9 and Type 2 diabetes mellitus without complications E11.9 Victoriano Jennings MD [address] [place] [address] Oct, Essential (primary) hypertension I10 and Gastro-esophageal reflux disease without esophagitis K21.9 Victoriano Jennings MD [address] [place] [phone] Aug, Unilateral primary osteoarthritis, right knee M17.11 ; Hyperglycemia, unspecified R73.9 ; Hypothyroidism, unspecified E03.9 and Essential (primary) hypertension I10 Victoriano Jennings MD [address] [place] [phone] Jun, Encounter for immunization Z23 and Unspecified open wound of left forearm, initial encounter S51.802A Victoriano Jennings MD [address] [place] [phone] Feb, Diabetes mellitus without mention of complication, type II or unspecified type, not stated as uncontrolled 250.00 and Essential hypertension, benign 401.1 Victoriano Jennings MD [address] [place] [phone] Dec, Diabetes mellitus without mention of complication, type II or unspecified type, not stated as uncontrolled 250.00 ; 24 completed weeks of gestation 765.22 and Essential hypertension, benign 401.1 Victoriano Jennings MD [address] [place] [phone] Dec, Victoriano Jennings MD [address] [place] [address] Dec, Essential hypertension, benign 401.1 Victoriano Jennings MD [address] [place] [address] Dec, Essential hypertension, benign 401.1 Victoriano Jennings MD [address] [place] [phone] Dec, Victoriano Jennings MD [address] [place] [address] Dec, Esophageal reflux 530.81 Victoriano Jennings MD [address] [place] [phone] Nov, Victoriano Jennings MD [address] [place] [phone] Nov, Essential hypertension, benign 401.1 Victoriano Jennings MD [address] [place] [phone] Nov, Essential hypertension, benign 401.1 ; Unspecified hypothyroidism 244.9 and Diabetes mellitus without mention of complication, type II or unspecified type, not stated as uncontrolled 250.00 Victoriano Jennings MD [address] [place] [address] Nov, Essential hypertension, benign 401.1 and Unspecified hypothyroidism 244.9 Victoriano Jennings MD [address] [place] [phone] Oct, Essential hypertension, benign 401.1 Victoriano Jennings MD [address] [place] [phone] Oct, Essential hypertension, benign 401.1 Victoriano Jennings MD [address] [place] [phone] Oct, Essential hypertension, benign 401.1 Victoriano Jennings MD [address] [place] [phone] Apr, Victoriano Jennings MD [address] [place] [phone] January, Victoriano Jennings MD [address] [place] [phone] Dec, screening mammogram V76.12 Victoriano Jennings MD [address] [place] [phone] Jun, viral gastroenteritis 008.8 and Unspecified hypothyroidism 244.9 IMMUNIZATIONS No Known Immunizations SOCIAL HISTORY Never Assessed REASON FOR VISIT BP ck and Lab for BS PLAN OF CARE Activity Details Follow Up prn Reason: VITAL SIGNS MEDICATIONS Medication Instructions Dosage Frequency Start Date End Date Duration Status Levothyroxine Sodium 75 MCG TAKE 1 TABLET EVERY DAY 90 Active Omeprazole 20 MG Orally Once a day 1 capsule 24h Dec, 90 days Active Losartan Potassium 50 MG Orally Once a day 1 tablet 24h Nov, 90 days Active RESULTS Name Result Date Reference Range COMPLETE BLOOD COUNT 2017-02-24 WBC 6.0 4.3-11.0 RBC 4.40 3.93-5.19 Hemoglobin 13.2 11.6-15.9 Hematocrit 40.9 35.7-47.8 MCV 93.0 83.2-100.5 MCH 30.0 26.8-33.3 MCHC 32.3 30.9-34.7 Platelet Count 256 170-422 Mean Plt Volume 10.0 9.5-12.9 RDW 13.2 12.2-15.3 RDW-SD 44.2 40.1-52.1 Neut Auto 61.5 Lymph Auto 26.9 Colbert Auto 7.1 Eos Auto 4.3 Baso Auto 0.2 Neutrophil Abs 3.69 1.80-7.80 Lymphocyte Abs 1.61 1.00-4.00 Monocyte Abs 0.43 0.20-1.00 Eosinophil Abs 0.26 0.00-0.45 Basophil Abs 0.01 0.00-0.20 LIPID GROUP 2017-02-24 Cholesterol 177 100-200 Triglyceride 135 30-150 HDL Cholesterol 62 40-125 Chol/HDL Ratio 2.85 0.00-4.44 LDL Cholesterol 88 0-130 COMPREHENSIVE METABOLIC 2017-02-24 Glucose 87 70-100 Creatinine 0.75 0.50-1.30 BUN 17 5-24 Sodium 140 135-145 Potassium 4.3 3.5-5.5 Chloride 101 96-108 Bicarbonate 25 18-30 AGAP 14 5-16 Calcium 10.5 8.5-10.5 AST 22 0-40 ALT 18 0-30 Alk Phos 67 40-123 Albumin 4.5 3.8-4.8 Bili Total 0.4 0.1-1.3 Total Protein 7.6 6.4-8.2 THYROID STIMULATING HORMONE 2017-02-24 TSH 1.613 0.300-5.000 HEMOGLOBIN A1C (GLYCOSYLATED) 2017-02-24 Hgb A1c 5.5 4.0-5.6 PROCEDURES No Known procedures INSTRUCTIONS MEDICATIONS ADMINISTERED No Known Medications MEDICAL (GENERAL) HISTORY Type Description Date Surgical History Lab work Surgical History Knee replacement 12-03-15 Hospitalization History Knee Replacement 12-03-15
--- OUTSIDE RECORDS SUMMARY | 2018-10-16 09:24 | XMS REPORT ---
Author Author Victoriano Jennings Organization [employer] Address Unknown Phone Unavailable Care Team Providers Care Kitchen Work Supervisor Name Role Phone Victoriano Jennings CP Unavailable Allergies, Adverse Reactions, Alerts Substance Reaction Event Type N.K.D.A. Info Not Available Non Drug Allergy Problems Problem Type Condition Code Onset Dates Condition Status Assessment Essential (primary) hypertension I10 Active Problem Essential (primary) hypertension I10 Active Problem Essential hypertension, benign 401.1 Active Problem Hypothyroidism, unspecified E03.9 Active Assessment Hyperglycemia, unspecified R73.9 Active Assessment Hypothyroidism, unspecified E03.9 Active Problem Unspecified hypothyroidism 244.9 Active Assessment Unilateral primary osteoarthritis, right knee M17.11 Active Medications Medication Code System Code Instructions Start Date End Date Status Dosage Levothyroxine Sodium [facility] [address]-03 75 MCG TAKE 1 TABLET EVERY DAY Omeprazole [facility] [address]-54 20 MG Orally Once a day December 24, 2014 1 capsule Lisinopril [facility] [address]-74 10 MG Orally Once a day November 27, 2014 1 tablet Procedures Procedure Coding System Code Date SCREEN MAMMO DOC REV CPT-4 3014F Sep 03, 2015 Office Visit, Est Pt., Level 3 CPT-4 44729 Sep 03, 2015 Vital Signs Date/Time: Sep 03, 2015 BMI 28.39 Index Weight 168 lbs Height 64.5 in Oximetry 98 % Cardiac Monitoring Heart Rate 98 /min Blood Pressure Diastolic 80 mm Hg Blood Pressure Systolic 140 mm Hg Respiratory Rate 18 /min Results No Known Results Summary Purpose [employer] Submission
--- OUTSIDE RECORDS SUMMARY | 2018-10-16 09:24 | XMS REPORT ---
Author Author Victoriano Jennings MD Address [address] [place] [phone] Care Team Providers Care Manpower Development Manager Name Role Phone Victoriano Jennings Unavailable PROBLEMS Type Condition ICD9-CM Code [id number] Code Onset Dates Condition Status SNOMED Code Problem Type 2 diabetes mellitus without complications E11.9 Active 387572560 Problem Gastro-esophageal reflux disease without esophagitis K21.9 Active 663603399 Problem Hypothyroidism, unspecified E03.9 Active 86792889 Problem Essential (primary) hypertension I10 Active 18565177 ALLERGIES No Information ENCOUNTERS Encounter Location Date Diagnosis Victoriano Jennings MD [address] [place] [phone] Dec, Victoriano Jennings MD [address] [place] [phone] Oct, Victoriano Jennings MD [address] [place] [phone] Sep, Hypothyroidism, unspecified E03.9 ; Essential (primary) hypertension I10 ; Gastro-esophageal reflux disease without esophagitis K21.9 and Type 2 diabetes mellitus without complications E11.9 Victoriano Jennings MD [address] [place] [phone] Mar, Essential (primary) hypertension I10 Victoriano Jennings MD [address] [place] [phone] Feb, Essential (primary) hypertension I10 ; Hypothyroidism, unspecified E03.9 and Type 2 diabetes mellitus without complications E11.9 Victoriano Jennings MD [address] [place] [phone] Nov, Essential (primary) hypertension I10 ; Gastro-esophageal reflux disease without esophagitis K21.9 and Encounter for screening mammogram for malignant neoplasm of breast Z12.31 Victoriano Jennings MD [address] [place] [phone] 15 Apr, 2016 Dermatitis, unspecified L30.9 Victoriano Jennings MD [address] [place] [phone] Feb, Victoriano Jennings MD [address] [place] [phone] Feb, Victoriano Jennings MD [address] [place] [phone] January, Encounter for immunization Z23 and Essential (primary) hypertension I10 Victoriano Jennings MD [address] [place] [address] Dec, Hypothyroidism, unspecified E03.9 ; Essential (primary) hypertension I10 ; Gastro-esophageal reflux disease without esophagitis K21.9 and Type 2 diabetes mellitus without complications E11.9 Victoriano Jennings MD [address] [place] [address] Oct, Essential (primary) hypertension I10 and Gastro-esophageal reflux disease without esophagitis K21.9 Victoriano Jennings MD [address] [place] [address] Aug, Unilateral primary osteoarthritis, right knee M17.11 ; Hyperglycemia, unspecified R73.9 ; Hypothyroidism, unspecified E03.9 and Essential (primary) hypertension I10 Victoriano Jennings MD [address] [place] [phone] Jun, Encounter for immunization Z23 and Unspecified open wound of left forearm, initial encounter S51.802A Victoriano Jennings MD [address] [place] [address] Feb, Diabetes mellitus without mention of complication, type II or unspecified type, not stated as uncontrolled 250.00 and Essential hypertension, benign 401.1 Victoriano Jennings MD [address] [place] [address] Dec, Diabetes mellitus without mention of complication, type II or unspecified type, not stated as uncontrolled 250.00 ; 24 completed weeks of gestation 765.22 and Essential hypertension, benign 401.1 Victoriano Jennings MD [address] [place] [address] Dec, Victoriano Jennings MD [address] [place] [address] Dec, Essential hypertension, benign 401.1 Victoriano Jennings MD [address] [place] [address] Dec, Essential hypertension, benign 401.1 Victoriano Jennings MD [address] [place] [address] Dec, Victoriano Jennings MD [address] [place] [address] Dec, Esophageal reflux 530.81 Victoriano Jennings MD [address] [place] [address] Nov, Victoriano Jennings MD [address] [place] [address] Nov, Essential hypertension, benign 401.1 Victoriano Jennings MD [address] [place] [address] Nov, Essential hypertension, benign 401.1 ; Unspecified hypothyroidism 244.9 and Diabetes mellitus without mention of complication, type II or unspecified type, not stated as uncontrolled 250.00 Victoriano Jennings MD [address] [place] [address] Nov, Essential hypertension, benign 401.1 and Unspecified hypothyroidism 244.9 Victoriano Jennings MD [address] [place] [address] Oct, Essential hypertension, benign 401.1 Victoirano Jennings MD [address] [place] [address] Oct, Essential hypertension, benign 401.1 Victoriano Jennings MD [address] [place] [address] Oct, Essential hypertension, benign 401.1 Victoriano Jennings MD [address] [place] [address] Apr, Victoriano Jennings MD [address] [place] [address] January, Victoriano Jennings MD [address] [place] [address] Dec, screening mammogram V76.12 Victoriano Jennings MD [address] [place] [phone] Jun, viral gastroenteritis 008.8 and Unspecified hypothyroidism 244.9 IMMUNIZATIONS No Known Immunizations SOCIAL HISTORY Never Assessed REASON FOR VISIT Sudefed PLAN OF CARE VITAL SIGNS MEDICATIONS Medication Instructions Dosage Frequency Start Date End Date Duration Status Pseudoephedrine HCl ER 120 MG Orally every 12 hrs 1 tablet as needed 12h 24 Dec, 2017 Active RESULTS No Results PROCEDURES No Known procedures INSTRUCTIONS MEDICATIONS ADMINISTERED No Known Medications MEDICAL (GENERAL) HISTORY Type Description Date Surgical History Lab work Surgical History Knee replacement 12-03-15 Hospitalization History Knee Replacement 12-03-15
--- OUTSIDE RECORDS SUMMARY | 2018-10-16 09:25 | XMS REPORT ---
Author Author Victoriano Jennings MD Address [address] [place] [phone] Care Team Providers Care Office Administration Name Role Phone Victoriano Jennings Unavailable PROBLEMS Type Condition ICD9-CM Code [id number] Code Onset Dates Condition Status SNOMED Code Problem Type 2 diabetes mellitus without complications E11.9 Active 583906486 Problem Gastro-esophageal reflux disease without esophagitis K21.9 Active 008800541 Problem Hypothyroidism, unspecified E03.9 Active 73672681 Problem Essential (primary) hypertension I10 Active 36241948 ALLERGIES No Information ENCOUNTERS Encounter Location Date Diagnosis Victoriano Jennings MD [address] [place] [phone] Oct, Victoriano Jennings MD [address] [place] [phone] Sep, Hypothyroidism, unspecified E03.9 ; Essential (primary) hypertension I10 ; Gastro-esophageal reflux disease without esophagitis K21.9 and Type 2 diabetes mellitus without complications E11.9 Victoriano Jennings MD [address] [place] [phone] Mar, Essential (primary) hypertension I10 Victoriano Jennings MD [address] [place] [address] Feb, Essential (primary) hypertension I10 ; Hypothyroidism, unspecified E03.9 and Type 2 diabetes mellitus without complications E11.9 Victoriano Jennings MD [address] [place] [phone] Nov, Essential (primary) hypertension I10 ; Gastro-esophageal reflux disease without esophagitis K21.9 and Encounter for screening mammogram for malignant neoplasm of breast Z12.31 Victoriano Jennings MD [address] [place] [address] Apr, Dermatitis, unspecified L30.9 Victoriano Jennings MD [address] [place] [address] 17 Feb, 2016 Victoriano Jennings MD [address] [place] [address] Feb, Victoriano Jennings MD [address] [place] [address] January, Encounter for immunization Z23 and Essential (primary) hypertension I10 Victoriano Jennings MD [address] [place] [address] Dec, Hypothyroidism, unspecified E03.9 ; Essential (primary) hypertension I10 ; Gastro-esophageal reflux disease without esophagitis K21.9 and Type 2 diabetes mellitus without complications E11.9 Victoriano Jennings MD [address] [place] [address] Oct, Essential (primary) hypertension I10 and Gastro-esophageal reflux disease without esophagitis K21.9 Victoriano Jennings MD [address] [place] [address] Aug, Unilateral primary osteoarthritis, right knee M17.11 ; Hyperglycemia, unspecified R73.9 ; Hypothyroidism, unspecified E03.9 and Essential (primary) hypertension I10 Victoriano Jennings MD [address] [place] [address] Jun, Encounter for immunization Z23 and Unspecified open wound of left forearm, initial encounter S51.802A Victoriano Jennings MD [address] [place] [address] Feb, Diabetes mellitus without mention of complication, type II or unspecified type, not stated as uncontrolled 250.00 and Essential hypertension, benign 401.1 Victoriano Jennings MD [address] [place] [address] Dec, Diabetes mellitus without mention of complication, type II or unspecified type, not stated as uncontrolled 250.00 ; 24 completed weeks of gestation 765.22 and Essential hypertension, benign 401.1 Victoriano Jennings MD [address] [place] [phone] Dec, Victoriano Jennings MD [address] [place] [address] Dec, Essential hypertension, benign 401.1 Victoriano Jennings MD [address] [place] [address] Dec, Essential hypertension, benign 401.1 Victoriano Jennings MD [address] [place] [phone] Dec, Victoriano Jennings MD [address] [place] [address] Dec, Esophageal reflux 530.81 Victoriano Jennings MD [address] [place] [phone] Nov, Victoriano Jennings MD [address] [place] [address] Nov, Essential hypertension, benign 401.1 Victoriano Jennings MD [address] [place] [address] Nov, Essential hypertension, benign 401.1 ; Unspecified hypothyroidism 244.9 and Diabetes mellitus without mention of complication, type II or unspecified type, not stated as uncontrolled 250.00 Victoriano Jennings MD [address] [place] [phone] Nov, Essential hypertension, benign 401.1 and Unspecified hypothyroidism 244.9 Victoriano Jennings MD [address] [place] [phone] Oct, Essential hypertension, benign 401.1 Victoriano Jennings MD [address] [place] [phone] Oct, Essential hypertension, benign 401.1 Victoriano Jennings MD [address] [place] [address] Oct, Essential hypertension, benign 401.1 Victoriano Jennings MD [address] [place] [address] Apr, Victoriano Jennings MD [address] [place] [phone] January, Victoriano Jennings MD [address] [place] [phone] Dec, screening mammogram V76.12 Victoriano Jennings MD [address] [place] [address] Jun, viral gastroenteritis 008.8 and Unspecified hypothyroidism 244.9 IMMUNIZATIONS No Known Immunizations SOCIAL HISTORY Never Assessed REASON FOR VISIT bp readings PLAN OF CARE VITAL SIGNS MEDICATIONS Unknown Medications RESULTS No Results PROCEDURES No Known procedures INSTRUCTIONS MEDICATIONS ADMINISTERED No Known Medications MEDICAL (GENERAL) HISTORY Type Description Date Surgical History Lab work Surgical History Knee replacement 12-03-15 Hospitalization History Knee Replacement 12-03-15
--- NOTE | 2018-10-16 09:28 | History & Physicial ---
History of Present Illness History of Present Illness Reason for visit/HPI to undergo an upper endoscopy with possible balloon dilatation, to manage dysphagia. Date of Admission 10/16/18 Date Seen by a Provider: Oct 16, 2018 Time Seen by a Provider: 09:27 I consulted on this patient on 10/16/18 09:26 Attending Physician Christos Mcarthur MD Admitting Physician Gomez Bob MD Consult Allergies and Home Medications Allergies Coded Allergies: No Known Drug Allergies (Unverified , 10/10/18) Home Medications Acetaminophen 500 Mg Tablet, 500 MG PO PRN, (Reported) Levothyroxine Sodium 75 Mcg Tablet, 75 MCG PO DAILY, (Reported) Losartan Potassium 50 Mg Tablet, 50 MG PO DAILY, (Reported) Multivitamin 1 Each Tablet, 1 EACH PO DAILY, (Reported) Omeprazole 20 Mg Capsule.dr, 20 MG PO DAILY, (Reported) Patient Home Medication List Home Medication List Reviewed: Yes Past Cpufiai-Ekacai-Xezbhy Hx Patient Social History Marrital Status: Employed/Student: retired 2[employer] Smoke Exposure: No Recent Foreign Travel: No Contact w/other who traveled: No Recent Hopitalizations: No Immunizations Up To Date Date of Pneumonia Vaccine: Sep 28, 2018 Date of Influenza Vaccine: Jun 26, 2018 Seasonal Allergies Seasonal Allergies: No Surgeries Yes (R TKR) Thyroidectomy Respiratory No Cardiovascular Yes Hypertension Neurological No Reproductive System Sexually Transmitted Disease: No HIV/AIDS: No Genitourinary No Gastrointestinal Yes Gastroesophageal Reflux Musculoskeletal Yes Arthritis, Chronic Back Pain Endocrine History of Endocrine Disorders: Yes Endocrine Disorders: Hypothyroidsim HEENT History of HEENT Disorders: Yes (GLASSES) Loss of Vision: Bilateral Hearing Impairment: Denies Cancer No Psychosocial History of Psychiatric Problem: No Integumentary History of Skin or Integumenta: No Blood Transfusions History of Blood Disorders: No Adverse Reaction to a Blood Tr: No (N/A) Review of Systems Constitutional: no symptoms reported EENTM: no symptoms reported Respiratory: no symptoms reported Cardiovascular: no symptoms reported Gastrointestinal: see HPI Genitourinary: no symptoms reported Musculoskeletal: no symptoms reported Skin: no symptoms reported Psychiatric/Neurological: No Symptoms Reported Physical Exam Vital Signs Capillary Refill : Height, Weight, BMI Height: 5'6.00" Weight: 160lbs. 0.0oz. 72.301397ot; 25.8 BMI Method: General Appearance: No Apparent Distress Neck: Normal Inspection Respiratory: Lungs Clear Cardiovascular: Regular Rate, Rhythm Gastrointestinal: Non Tender, Soft Neurologic/Psychiatric: Alert, Oriented x3 Skin: Warm/Dry Assessment/Plan Assessment and Plan lady with dysphagia. For upper endoscopy with possible balloon dilatation. Admission Diagnosis Admission Status: Other (Outpt Proc) CHRISTOS MCARTHUR MD Oct 16, 2018 09:28
--- NOTE | 2018-10-16 09:28 | Conscious Sedation/ASA ---
Conscious Sedation Pre-Proced Time 09:28 ASA Score 2 For ASA 3 and 4: Consider anesthesia and medical clearance. Also, for patients with a history of failed moderate sedation consider anesthesia. Airway Lungs Heart ASA score ASA 1: a normal healthy patient ASA 2: a patient with a mild systemic disease (mid diabetes, controlled hypertension, obesity ASA 3: a patient with a severe systemic disease that limits activity (angina , COPD, prior Myocardial infarction) ASA 4: a patient with an incapacitating disease that is a constant threat to life (CHF, renal failure) ASA 5: a moribund patient not expected to survive 24 hrs. (ruptured aneurysm) ASA 6: a declared brain patient whose organs are being harvested. For emergent operations, add the letter E after the classification Mallampati Classification Grade 1 Sedation Plan Discussed options with patient/fam The patient is an appropriate candidate to undergo the planned procedure, sedation, and anesthesia. The patient immediately re-assessed prior to indication. CHRISTOS MCARTHUR MD Oct 16, 2018 09:28
[2018-10-16 10:07] VITALS: BP 139/82
--- NOTE | 2018-10-16 10:56 | Endo Procedure Record ---
Endo Procedure Report Date of Procedure Last Colonoscopy: No Oct 16, 2018 Surgeon (s) CHRISTOS MCARTHUR MD Post Procedure/Op Diagnosis hiatal hernia with distal esophageal stricture Multiple gastric polyps along the body of the stomach, ranging from 2-4 mm Procedure Performed EGD with balloon dilatation of esophageal stricture Gastric snare polypectomy 4 Description of Procedure Anesthesia Type: Conscious Sedation Specimen(s) collected/removed gastric polyps Description of the Procedure Indication for the procedure: This lady came in for an upper endoscopy to evaluate ongoing symptoms of reflux and intermittent dysphagia. Informed consent was obtained after reviewing the procedure in detail. The potential for endoscopic balloon dilatation, should a stricture be confirmed, was highlighted. Description of the procedure: She was placed in left lateral decubitus position and her vital signs were monitored. Conscious sedation was achieved using Versed and fentanyl. The flexible gastroscope was then introduced down the esophagus, past the stomach, into the proximal duodenum. Findings: Esophagus: A short hiatal hernia with a concentric, smooth, peptic stricture. Due to her symptoms, it was dilated to 20 mm with a balloon. Stomach: Multiple polyps along the proximal body of the stomach, ranging in diameter from 2-4 mm. A few of these were snared and retrieved using a Gold net device. Duodenum: Normal She tolerated the procedure well and was taken back to the nursing area in a stable condition. Impression: Dysphagia due to peptic esophageal stricture. Balloon dilatation completed. Incidental, numerous gastric polyps. Copy Copies To 1: AL WILSON MD,CHRISTOS Lopez MD Oct 16, 2018 10:56
--- NOTE | 2018-10-16 10:58 | Discharge Inst-Simple/Standard ---
Discharge Inst-Standard Discharge Medications New, Converted or Re-Newed RX: Other Patient Instructions/Follow Up Plan of Care/Instructions/FU: follow-up in 7-10 days to discuss thyroid ultrasound and pathology results Activity as Tolerated: Yes Discharge Diet: No Restrictions CHRISTOS MCARTHUR MD Oct 16, 2018 10:58
== END | disposition home or self-care (01) ==
LOC: ENDO 09:19
PROVIDERS: ATTEND Surgery
DX: K22.2 Esophageal obstruction (principal); K31.7 Polyp of stomach and duodenum; K21.9 Gastro-esophageal reflux disease without esophagitis; I10 Essential (primary) hypertension; E03.9 Hypothyroidism, unspecified; Z79.899 Other long term (current) drug therapy

== ENCOUNTER → 2018-10-18 | Outpatient (CLI) | payer MEDICARE ==
[~2018-10-18] MED LIST changes: -HURRICAINE EXT TUBE (BENZOCAINE) ONE; -HURRICAINE EXT TUBE (BENZOCAINE) XX PRN; -MIDAZOLAM 2 MG/2 ML (VERSED) VIAL IVP ONE; -MIDAZOLAM 2 MG/2 ML (VERSED) VIAL ONE; -NS IV 500 ML 500 ML IV PRN; -fentaNYL INJECTION 100 MCG/2 ML AMP IVP ONE; -fentaNYL INJECTION 100 MCG/2 ML AMP ONE
--- NOTE | 2018-10-18 11:30 | Diagnostic Imaging Report ---
EXAM: Ultrasound thyroid. DATE: October 18, 2018. COMPARISON: None. INDICATION: 78-year-old female, dysphagia. FINDINGS: Two-dimensional grayscale and color Doppler images were obtained of the thyroid. Right lobe of the thyroid: The right lobe of the thyroid has uniform echotexture. There are no solid or cystic parenchymal distorting masses of the right thyroid. The right lobe of the thyroid measures 4.4 x 1.4 x 1.4 cm. 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 Isthmus: The thyroid isthmus is unremarkable. The isthmus measures 0.2 cm. IMPRESSION: 1. 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 2. Unremarkable additional evaluation of the thyroid. Dictated by: Dictated on workstation # [id number]
== END ==
LOC: RAD 09:21
PROVIDERS: ATTEND Surgery
DX: R13.19 Other dysphagia (principal)
CPT/HCPCS: 76536